=== PATIENT | male | born 1990 | race Two or more races ===

== ENCOUNTER 2023-05-06 16:38 | Emergency (ER) | payer BC, SELFPAY ==
[2023-05-06 16:39] VITALS: BP 159/121; PULSE 72; RESP 20; TEMP 35.8; O2SAT 99; BMI 30.3
--- NOTE | 2023-05-06 16:50 | EDS_ITS ---
HPI <CARMITA Ferraro - Last Filed: 05/06/23 18:44> History of Present Illness Chief Complaint: Abd Pain Narrative Narrative: 32-year-old male with no PMH presents with nausea and epigastric pain intermittently over the last 2 days. This morning he took some type of gastric medication from [place] which helped for about an hour but then the pain came back and has been slowly increasing all day and is now 10/10. It is focused only in the epigastric region with no radiation. He is nauseous with no vomiting. Reports normal urination and daily BMs. No history of similar symptoms or abdominal surgeries. He drinks twice a week and did have 4 beers last night. Denies smoking. PFSH <CARMITA Ferraro Last Filed: 05/06/23 18:44> PFS Home Medications omeprazole 40 mg capsule,delayed release 40 mg PO DAILY #14 caps 05/06/23 [Rx Last Taken Unknown] Allergy/AdvReac Type Severity Reaction Status Date / Time No Known Allergies Allergy Verified 05/06/23 16:39 Social History Smoking Status: Never smoker ROS <CARMITA Ferraro Last Filed: 05/06/23 18:44> ROS ED ROS Narrative Constitutional: Negative for fever, chills, malaise. CVS: Negative for chest pain, syncope. Respiratory: Negative for shortness of breath, cough. GI: Positive for abdominal pain, nausea. Negative for vomiting, melena, hematochezia, diarrhea, constipation. : Negative for dysuria, hematuria or frequency. EXAM <CARMITA Ferraro Last Filed: 05/06/23 18:44> Physical Exam Narrative Exam Narrative: CONST: Patient sitting in no acute distress. EYES: Normal inspection. NECK: Normal inspection. RESP: No respiratory distress, CTAB. CVS: Regular rate and rhythm, no murmur, no gallop. ABD: Soft with midline epigastric tenderness, no guarding or rebound, nondistended, no hepatosplenomegaly. SKIN: Color normal, no rash, warm, dry, intact. EXTREMITIES: Normal appearance, no pedal edema. NEURO: Oriented x4. PSYCH: Normal affect. Const Vital Signs: 05/06/23 16:39 05/06/23 17:25 Temperature 96.5 F L Temperature Source Temporal Pulse Rate 72 Respiratory Rate 20 H Blood Pressure 159/121 H 146/91 H Blood Pressure Mean 133 109 Pulse Ox 99 <Dr. Sean Beckwith MD - Last Filed: 05/06/23 17:18> Physical Exam Const Vital Signs: 05/06/23 16:39 05/06/23 17:25 Temperature 96.5 F L Temperature Source Temporal Pulse Rate 72 Respiratory Rate 20 H Blood Pressure 159/121 H 146/91 H Blood Pressure Mean 133 109 Pulse Ox 99 MDM <CARMITA Ferraro - Last Filed: 05/06/23 18:44> [facility] Narrative Medical decision making narrative: History gathered from: Patient and family members Patient was evaluated for nausea and epigastric pain. He appears well and nontoxic. He is hypertensive at 159/121 with otherwise normal vital signs. Cardiopulmonary exam is within normal limits. He has focal midline epigastric tenderness with no guarding or rebound. No right upper quadrant tenderness and negative Crespo sign. Differential includes GERD, gastritis, pancreatitis, less likely a gallbladder process among others. He was treated with morphine, Protonix, and Zofran while blood work was obtained. CBC is within normal limits. BMP is normal with the exception of glucose 247. Lipase is 49. Patient states he was told about 6 months ago his fasting glucose was slightly high. He recently moved to the area and has not established with a PCP. His symptoms have all resolved after treatment here. I suspect he has GERD or gastritis and prescribed omeprazole and discussed lifestyle changes. I provided a PCP referral and he can follow-up for the abdominal pain as well as elevated glucose to rule out diabetes. He was given return precautions and discharged in stable condition. Test considered: No indication for RUQ ultrasound as he has no RUQ tenderness an d negative Crespo sign Lab Data Attestation: I reviewed the patient's lab results. Labs: Laboratory Results - last 24 hr 05/06/23 17:23 WBC 10.8 RBC 5.70 Hgb 16.0 Hct 45.8 MCV 80.4 MCH 28.1 MCHC 34.9 RDW Std Deviation 37.3 RDW Coeff of Calderon 13.0 Plt Count 383 MPV 9.9 Immature Gran % (Auto) 0.600 Neut % (Auto) 56.5 Lymph % (Auto) 35.2 [place] % (Auto) 4.9 Eos % (Auto) 2.3 Baso % (Auto) 0.5 Absolute Neuts (auto) 6.1 Absolute Lymphs (auto) 3.80 Nucleated RBC % 0 Sodium 135 L Potassium 3.6 Chloride 100 Carbon Dioxide 29.0 Anion Gap 6 BUN 13 Creatinine 1.11 Estim Creat Clear Calc 90.98 Est GFR (MDRD) Af Amer 99 Est GFR (MDRD) Non-Af 82 BUN/Creatinine Ratio 11.7 Glucose 247 H Calcium 9.4 Total Bilirubin 0.30 AST 19 ALT 32 Alkaline Phosphatase 88 Total Protein 7.7 Albumin 3.9 Globulin 3.8 Albumin/Globulin Ratio 1.0 Lipase 49 <Dr. Sean Beckwith MD - Last Filed: 05/06/23 17:18> [facility] Lab Data Labs: Laboratory Results - last 24 hr 05/06/23 17:23 WBC 10.8 RBC 5.70 Hgb 16.0 Hct 45.8 MCV 80.4 MCH 28.1 MCHC 34.9 RDW Std Deviation 37.3 RDW Coeff of Calderon 13.0 Plt Count 383 MPV 9.9 Immature Gran % (Auto) 0.600 Neut % (Auto) 56.5 Lymph % (Auto) 35.2 [place] % (Auto) 4.9 Eos % (Auto) 2.3 Baso % (Auto) 0.5 Absolute Neuts (auto) 6.1 Absolute Lymphs (auto) 3.80 Nucleated RBC % 0 Sodium 135 L Potassium 3.6 Chloride 100 Carbon Dioxide 29.0 Anion Gap 6 BUN 13 Creatinine 1.11 Estim Creat Clear Calc 90.98 Est GFR (MDRD) Af Amer 99 Est GFR (MDRD) Non-Af 82 BUN/Creatinine Ratio 11.7 Glucose 247 H Calcium 9.4 Total Bilirubin 0.30 AST 19 ALT 32 Alkaline Phosphatase 88 Total Protein 7.7 Albumin 3.9 Globulin 3.8 Albumin/Globulin Ratio 1.0 Lipase 49 Treatment and Re-Evaluation :: I have personally performed a face to face assessment of the patient and have reviewed the CHEYANNE Note. I performed a substantive portion of the visit including all aspects of the following. My lundberg findings include: History: Patient presents with epigastric area pain. He stated started about 2 days ago he had it. But yesterday was good. Mild nausea but no vomiting. No change in bowel habits or blood in the stool or melena. He took an unknown medicine from [place] that helped for short time but it came back. No fever. No prior surgeries. No acid taste in the mouth. No pain radiating to the back. Exam: Patient awake alert. He is nontoxic in appearance. Heart is regular. Lungs are clear. Mucous membranes are moist. Bowel sounds are normal. He does not have a distended abdomen. There is very mild epigastric tenderness. No lower abdominal tenderness. No real right upper quadrant tenderness. There is no rebound guarding or mass in any area. Medical decision Making: Patient will be given medications. Blood work is ordered. He will be rechecked. Depending on his results and condition we may have to look further. Discharge Plan Triage Chief Complaint: Abd Pain ED Midlevel Provider: Paulina Wolff ED Provider: Sean Beckwith Dx/Rx/DC Orders Clinical Impression: Abdominal pain, epigastric Instructions: ED GERD (Adult), ED Pain, Acute, Uncertain Cause Prescriptions: New omeprazole 40 mg capsule,delayed release(DR/EC) 40 mg PO DAILY Qty: 14 0RF Primary Care Provider: NOT,DEFINED Referrals: Rosemary Linda MD [Med Staff - Watch Repair Technician] - Ghislaine Lee DO [Med Staff - Watch Repair Technician] - NOT,DEFINED [Primary Care Provider] - Activity Restrictions/Additional Instructions: Avoid spicy food, sit upright for at least 2 hours after eating, and take the medication as prescribed. Your blood sugar was also high and you need to follow-up with your primary care doctor for evaluation and to rule out diabetes. Disposition Disposition: Home, Self Care
[2023-05-06] MEDS: Morphine 4 MG/ML Syringe IV (17:14)
[2023-05-06] MEDS: Ondansetron 4 MG/2 ML Vial IV (17:14)
[2023-05-06 17:25] VITALS: BP 146/91
[2023-05-06 17:37] LABS: Absolute Neutrophil Count 6.1 X10^3/uL (2.0-7.7); Basophil# 0.05 X10^3/uL; Basophil% 0.5 % (0-1); Eosinophil# 0.25 X10^3/uL; Eosinophils% 2.3 % (0-5); Hematocrit 45.8 % (40-54); Lymphocyte % 35.2 % (19-41); Mean Corp Hgb Conc 34.9 g/dL (32-36); Mean Corpuscular Hgb 28.1 pg (27.0-32.0); Mean Corpuscular Volume 80.4 fL (80-94); Mean Platelet Vol. 9.9 fl (6.2-12.0); Monocyte# 0.53 X10^3/uL; Monocyte% 4.9 % (0-10); NRBC Flagged by Analyzer 0 % (0-5); Neutrophil # 6.12 X10^3/uL (2.7-7.7); Neutrophil % 56.5 % (47-70); Platelet Count 383 K/mm3 (150-450); RBC Distribution Width SD 37.3 fl (35.1-43.9); White Blood Count 10.8 K/mm3 (4.4-11.0)
[2023-05-06 17:54] LABS: AST(SGOT) 19 U/L (15-37); Alanine Aminotransfer ALT/SGPT 32 U/L (16-61); Albumin, Serum 3.9 g/dL (3.2-5.0); Alkaline Phosphatase 88 U/L (45-117); Anion Gap 6 (5-15); BUN 13 mg/dL (7-18); BUN/Creat Ratio 11.7 RATIO (10-20); Calcium,Total 9.4 mg/dL (8.5-10.1); Chloride 100 mmol/L (98-107); Creatinine, Serum 1.11 mg/dL (0.70-1.30); EST Glomerular Filtration Rate 82 mL/min (>60); Est Glom Filt Rate - Afr Amer 99 mL/min (>60); Estimated Creatinine Clearance 90.98 ml/min; Globulin 3.8 g/dL (2.2-4.2); Glucose 247 mg/dL (74-106); Lipase 49 U/L (13-75); Potassium 3.6 mmol/L (3.5-5.1); Protein, Total 7.7 g/dL (6.4-8.2); Sodium Level 135 mmol/L (136-145)
== END 2023-05-06 19:26 | disposition home or self-care (01) ==
PROVIDERS: Physician Assistant; Emergency Provider Emergency Medicine; Visit Provider Emergency Medicine
DX: R10.13 Epigastric pain (principal)
CPT/HCPCS: 80053; 83690; 85025; 96365; 96375; 99282; J7030; A4216; J2405